=== PATIENT | male | born 1980 | race African-American/Black ===

== ENCOUNTER 2018-10-11 00:35 | Emergency (ER) | payer SELFPAY ==
[~2018-10-11] VITALS: Ht 188 cm; Wt 82.0 kg
[2018-10-11 02:51] VITALS: BP 132/78
== END 2018-10-11 02:52 | disposition home or self-care (01) ==
LOC: ER 00:35
DX: F12.10 Cannabis abuse, uncomplicated (principal); F17.200 Nicotine dependence, unspecified, uncomplicated
CPT/HCPCS: 99283